=== PATIENT | female | born 1995 | race Caucasian/White ===

== ENCOUNTER 2016-11-26 15:23 | Emergency (ER) | payer SELFPAY ==
[2016-11-26 15:32] VITALS: RESP 16; TEMP 98.8
[2016-11-26] MEDS ORDERED: NS 1,000 ML IV ONE (15:59)
--- NOTE | 2016-11-26 16:05 | EDPHY ---
H & P Stated Complaint: change in mental staus Time Seen by Provider: 11/26/16 15:53 HPI/ROS: CHIEF COMPLAINT: Confusion HISTORY OF PRESENT ILLNESS: Patient is a 21-year-old female who called EMS today and told them that she had taken caffeine powder yesterday and was up all night and then use marijuana today and felt confused and lethargic. Here in the emergency department she is very evasive and will not answer questions. When asked if she used any drugs or alcohol today she said "how do I know it is today and not tomorrow". When asked if she has been sick lately she asked "are you asking about me spiritually"? Nursing staff states that she was texting on her phone when they entered the room and then she handed them the phone and stated "what is this". REVIEW OF SYSTEMS: Unable to obtain secondary to condition EXAM: GENERAL: Well-appearing, well-nourished and in no acute distress. HEAD: Atraumatic, normocephalic. EYES: Pupils equal round and reactive to light, extraocular movements intact, sclera anicteric, conjunctiva are normal. ENT: TMs normal, nares patent, oropharynx clear without exudates. Moist mucous membranes. NECK: Normal range of motion, supple without lymphadenopathy or JVD. LUNGS: Breath sounds clear to auscultation bilaterally and equal. No wheezes rales or rhonchi. HEART: Regular rate and rhythm without murmurs, rubs or gallops. ABDOMEN: Soft, nontender, normoactive bowel sounds. No guarding, no rebound. No masses appreciated. BACK: No CVA tenderness, no spinal tenderness, step-offs or deformities EXTREMITIES: Normal range of motion, no pitting or edema. No clubbing or cyanosis. NEUROLOGICAL: Cranial nerves II through XII grossly intact. Normal speech, normal gait. 5/5 strength, normal movement in all extremities, normal sensation PSYCH: Talkative, evasive with questioning SKIN: Warm, dry, normal turgor, no visible rashes or lesions. Source: Patient Exam Limitations: No limitations - Personal History LMP (Females 10-55): 22-28 Days Ago Current Tetanus/Diphtheria Vaccine: Yes Current Tetanus Diphtheria and Acellular Pertussis (TDAP): Yes - Medical/Surgical History Hx Asthma: No Hx Chronic Respiratory Disease: No Hx Diabetes: No Hx Cardiac Disease: No Hx Renal Disease: No Hx Cirrhosis: No Hx Alcoholism: No Hx HIV/AIDS: No Hx Splenectomy or Spleen Trauma: No - Family History Significant Family History: No pertinent family hx - Social History Smoking Status: Never smoked Alcohol Use: Sober Drug Use: None Constitutional: Initial Vital Signs Temperature (C) 37.1 C 11/26/16 15:26 Heart Rate 114 H 11/26/16 15:26 Respiratory Rate 16 11/26/16 15:26 Blood Pressure 120/83 H 11/26/16 15:26 O2 Sat (%) 99 11/26/16 15:26 O2 Delivery Mode Room Air Allergies/Adverse Reactions: No Known Allergies Allergy (Unverified 11/26/16 15:31) Medical Decision Making - Diagnostics EKG Interpretation: An EKG obtained and was read and documented in trace view. Please see trace view for full reading and report. Sinus rhythm, no acute ischemia ED Course/Re-evaluation: 7:30 p.m. the patient is A and O x3 and answering questions appropriately. She states that she used a lot of marijuana because her boyfriend told that would help with her abdominal pain. She denies having any abdominal pain currently. Her abdominal exam is benign. She denies nausea vomiting. She feels ready to go home and declines any further workup or testing. Differential Diagnosis: Partial list of the Differential diagnosis considered include but were not limited to; marijuana overdose, anxiety, polysubstance abuse and although unlikely based on the history and physical exam, I also considered infection, hypoglycemia , electrolyte abnormality, seizure, psychosis. I discussed these differential diagnoses and the plan with the patient as well as the usual and expected course. The patient understands that the diagnosis is provisional and that in medicine we are not always correct and that further workup is often warranted. Usual and customary warnings were given. All of the patient's questions were answered. The patient was instructed to return to the emergency department should the symptoms at all worsen or return, otherwise to followup with the physician as we discussed. - Data Points Laboratory Results: Laboratory Results 11/26/16 15:50 11/26/16 Unknown Medications Given: Discontinued Medications Sodium Chloride (Ns) 1,000 mls @ 0 mls/hr IV EDNOW ONE; Wide Open PRN Reason: Protocol Stop: 11/26/16 16:00 Last Admin: 11/26/16 16:08 Dose: 1,000 mls Potassium Chloride (Klor-Con) 40 meq PO EDNOW ONE Stop: 11/26/16 16:28 Last Admin: 11/26/16 16:33 Dose: 40 meq Departure - Departure Disposition: Home, Routine, Self-Care Clinical Impression: Marijuana abuse Condition: Fair Instructions: Cannabis Abuse (ED) Referrals: Amina Vasquez MD [Medical Doctor] - As per Instructions
[2016-11-26 16:13] LABS: % IMMATURE GRANULYOCYTES 0.4 % (0.0-1.1); ABSOLUTE IMMATURE GRANULOCYTES 0.04 10^3/uL (0.00-0.10); ADD DIFF? NO; ADD MORPH? NO; ADD SCAN? NO; ATYPICAL LYMPHOCYTE FLAG 10 (0-99); FRAGMENT RBC FLAG 0 (0-99); HEMATOCRIT 37.2 % (38.0-47.0); HEMOGLOBIN 12.6 g/dL (12.6-16.3); LEFT SHIFT FLG 0 (0-99); LIPEMIA HEMOLYSIS FLAG 90 (0-99); MEAN CELL HEMOGLOBIN 30.9 pg (27.9-34.1); MEAN CELL HEMOGLOBIN CONCENTR. 33.9 g/dL (32.4-36.7); MEAN CELL VOLUME 91.2 fL (81.5-99.8); MEAN PLATELET VOLUME 10.6 fL (8.7-11.7); PLATELET CLUMPS FLAG 10 (0-99); PLATELET COUNT 253 10^3/uL (150-400); RED BLOOD CELL COUNT 4.08 10^6/uL (4.18-5.33); RED CELL DISTRIBUTION WIDTH 12.9 % (11.5-15.2)
[2016-11-26 16:13] LABS: ANION GAP 18 mEq/L (8-16); CALCIUM 9.8 mg/dL (8.5-10.4); CARBON DIOXIDE 16 mEq/l (22-31); CHLORIDE 106 mEq/L (97-110); CREATININE 0.8 mg/dL (0.6-1.0); ETHANOL SERUM < 10 mg/dL (0-10); GLOMERULAR FILTRATION RATE > 60; GLUCOSE 129 mg/dL (70-100); SODIUM 140 mEq/L (134-144)
[2016-11-26] MEDS ORDERED: POTASSIUM CL 20 MEQ TAB PO ONE (16:27)
--- NOTE | 2016-11-26 16:38 | CPEKG ---
Heart Rate: 100 RR Interval: 600 P-R Interval: 156 QRSD Interval: 96 QT Interval: 380 QTC Interval: 491 P [place]: 70 QRS [place]: 24 T Wave [place]: 11 EKG Severity - BORDERLINE ECG - EKG Impression: SINUS TACHYCARDIA EKG Impression: BORDERLINE PROLONGED QT INTERVAL Electronically Signed By: Oliver Duenas 26-Nov-2016 17:03:05
[2016-11-26 19:55] VITALS: BP 110/65; PULSE 90; O2SAT 99
== END 2016-11-26 19:55 | disposition home or self-care (01) ==
DX: F12.10 Cannabis abuse, uncomplicated (principal); E86.9 Volume depletion, unspecified
CPT/HCPCS: 80305; G0480